=== PATIENT | female | born 1950 | race Caucasian/White ===

== ENCOUNTER → 2023-10-20 11:19 | Outpatient (REF) | payer BC, SELFPAY | LOC: HWRAD 11:19 | PROVIDERS: ATTENDING PHYSICIAN Ophthalmology Ophthalmic Plastic and Reconstructive Surgery; FAMILY PHYSICIAN Family Medicine | DX: H05.20 Unspecified exophthalmos (principal) | CPT/HCPCS: 70480 ==

== ENCOUNTER → 2024-06-20 15:04 | Outpatient (REF) | payer BC, SELFPAY | LOC: HWRAD 15:04 | PROVIDERS: ATTENDING PHYSICIAN Family Medicine | DX: J18.9 Pneumonia, unspecified organism (principal) | CPT/HCPCS: 71046 ==

== ENCOUNTER → 2025-01-06 13:43 | Outpatient (REF) | payer BC, SELFPAY | LOC: HWRAD 13:43 | PROVIDERS: ATTENDING PHYSICIAN Family Medicine | DX: J18.9 Pneumonia, unspecified organism (principal) | CPT/HCPCS: 71046 ==